=== PATIENT | female | born 1950 | race Two or more races ===

== ENCOUNTER 2019-01-18 18:26 | Inpatient (IN) | payer MEDICARE ==
[2019-01-18] MEDS ORDERED: Sodium Chloride 0.9% 1,000 ML IV STA (19:27)
--- NOTE | 2019-01-18 20:01 | ED PDOC ---
HPI: Skin/Bite Injury Time Seen by Provider: 01/18/19 19:10 Chief Complaint (Nursing): Abnormal Skin Integrity Chief Complaint (Provider): Rash History Per: Patient History/Exam Limitations: no limitations Onset/Duration Of Symptoms: Days (x3) Current Symptoms Are (Timing): Still Present Additional Complaint(s): 68 year old female with pmhx of seizure disorder, hypertension, chronic alcohol abuse, and "brain surgery" four years ago presents to the ED via EMS for eval uation of a rash to her face and bilateral upper/lower extremities. Patient states the rash on her face feels hot, and that she has been picking scabs off of her legs and arms. Otherwise, patient states this has never happened before and denies fever, chest pain, shortness of breath, and abdominal pain. She also notes a wet film on her neck which she attributes to "brain fluid." Admits to alcohol use today. PMD: Dr. Dee in [place] Past Medical History Reviewed: Historical Data, Nursing Documentation, Vital Signs Vital Signs: Last Vital Signs Temp 97.6 F 01/18/19 18:38 Pulse 125 H 01/18/19 18:38 Resp 16 01/18/19 18:38 BP 161/90 H 01/18/19 18:38 Pulse Ox 99 01/18/19 18:38 - Medical History PMH: HTN, Seizures - Surgical History Other surgeries: "brain surgery" x4 years ago - Family History Family History: States: Unknown Family Hx - Social History Current smoker - smoking cessation education provided: No Ex-Smoker (has not smoked in the last 12 months): Yes Alcohol: Other (hx of abuse, daily use) Drugs: Denies - Immunization History Hx Tetanus Toxoid Vaccination: No Hx Influenza Vaccination: No Hx Pneumococcal Vaccination: No - Home Medications Home Medications: Ambulatory Orders Medication Instructions Recorded QUEtiapine [SEROquel] 50 mg PO HS 01/18/19 RX: Levetiracetam 1,000 mg PO BID 01/18/19 RX: Metoprolol Tartrate [Lopressor] 25 mg PO BID 01/18/19 RX: Venlafaxine HCl [Venlafaxine 150 mg PO DAILY 01/18/19 HCl ER] - Allergies Allergies/Adverse Reactions: Allergies Allergy/AdvReac Type Severity Reaction Status Date / Time No Known Allergies Allergy Verified 01/18/19 18:38 Review of Systems ROS Statement: Except As Marked, All Systems Reviewed And Found Negative Constitutional: Negative for: Fever Cardiovascular: Negative for: Chest Pain Respiratory: Negative for: Shortness of Breath Gastrointestinal: Negative for: Abdominal Pain Skin: Positive for: Rash (red hot rash to face, and bilateral upper/lower extremities; wet film on neck) Physical Exam - Reviewed Nursing Documentation Reviewed: Yes Vital Signs Reviewed: Yes - Physical Exam Appears: Positive for: No Acute Distress Head Exam: Positive for: ATRAUMATIC, NORMOCEPHALIC Skin: Positive for: Rash (Face: erythematous scaling rash to entire face sparing hairline and in a semicircular collar distribution to lower neck and above with leathery quality in certain places; UE/LE: rash scattered in distribution, min imal to moderate compared to face with exposed epidermis secondary to picking of scabs; Lower abdomen right side: vesicular rash) Eye Exam: Positive for: Normal appearance Cardiovascular/Chest: Positive for: Tachycardia Respiratory: Positive for: Normal Breath Sounds. Negative for: Respiratory Distress Extremity: Positive for: Normal ROM (all extremities) Neurological/Psych: Positive for: Awake, Alert - Laboratory Results Result Diagrams: 01/18/19 20:31 01/18/19 20:31 - ECG O2 Sat by Pulse Oximetry: 99 (RA) Pulse Ox Interpretation: Normal Medical Decision Making Medical Decision Making: A/P: erythematous rash to face and extremities in a somewhat exposure distribution --unclear at this time if it is cellulitic, inflammatory, immunologic, or drug related photodermatitis --will attempt to reach PMD in [place], Dr. Dee Time: 1925 Initial Plan: --Type and screen --VBG --Alcohol serum --UDS --CMP --Lipase --CBC with differential --PTT / PT --CXR --Normal saline IV --Blood culture --Urinalysis 21:00 --Dr. Davis states that he is unaware of any "brain surgery" but the patient gets confused because of her alcoholism --Patient has hypokalemia on VBG and CMP, likely secondary to chronic alcoholism and malnutrition, will replete --Will cover with ABx for photodermatitis with possible superimposed cellulitis --Will admit to Dr. Barry's service Scribe Attestation: Documented by Nettie Flannery, acting as a scribe for Hermelindo Cruz MD. Provider Scribe Attestation: All medical record entries made by the Scribe were at my direction and personally dictated by me. I have reviewed the chart and agree that the record accurately reflects my personal performance of the history, physical exam, medical decision making, and the department course for this patient. I have also personally directed, reviewed, and agree with the discharge instructions and disposition. Disposition - Clinical Impression Clinical Impression: Photodermatitis, Cellulitis, Hypokalemia Discussed With Dr.: Isabella Conde Seman - Disposition Disposition Time: 21:27 Condition: FAIR Forms: [employer] (Czech)
[2019-01-18 20:36] LABS: VENOUS BLOOD GAS BASE EXCESS -10.6 mmol/L (0.0-2.0); VENOUS BLOOD GAS PCO2 27 mmHg (40-60); VENOUS BLOOD GAS PO2 30 mm/Hg (30-55); VENOUS BLOOD PH 7.32 (7.32-7.43)
[2019-01-18 20:38] LABS: BASO % 0.5 % (0.0-2.0); EOS # 0.2 K/uL (0.0-0.7); EOS % 2.7 % (0.0-4.0); HEMOGLOBIN 11.4 g/dL (12.0-16.0); LYMPH # 1.3 K/uL (1.0-4.3); LYMPH % 19.1 % (20.0-40.0); MEAN CELL VOLUME 91.3 fl (81.0-99.0); MEAN CORPUSCULAR HEMOGLOBIN 30.5 pg (27.0-31.0); MEAN CORPUSCULAR HGB CONC 33.4 g/dL (33.0-37.0); MEAN PLATELET VOLUME 7.4 fl (7.2-11.7); MONO # 0.8 K/uL (0.0-0.8); MONO % 12.3 % (0.0-10.0); NEUT # 4.4 K/uL (1.8-7.0); NEUT % 65.4 % (50.0-75.0); NRBC % 0.1 % (0.0-0.0); RBC 3.75 Mil/uL (3.80-5.20); RED CELL DISTRIBUTION WIDTH 16.6 % (11.5-14.5); WHITE BLOOD COUNT 6.7 K/uL (4.8-10.8)
[2019-01-18 20:45] LABS: ALBUMIN 2.6 g/dL (3.5-5.0); ALT/SGPT 26 U/L (9-52); AST/SGOT 20 U/L (14-36); BLOOD UREA NITROGEN 6 mg/dl (7-17); CALCIUM 6.8 mg/dL (8.4-10.2); GFR NON-AFRICAN AMERICAN > 60; LIPASE 23 U/L (23-300)
[2019-01-18 20:52] LABS: INR 1.3; PROTHROMBIN TIME 14.6 Seconds (9.8-13.1)
[2019-01-18] MEDS ORDERED: Potassium Chloride 20 mEq ER Tab PO ONE ×2 (21:06→21:32)
[2019-01-18] MEDS ORDERED: Clindamycin 300 MG in Sodium Chloride 0.9% 50 ML IVPB STA (21:06)
[2019-01-18] MEDS ORDERED: Multivitamin (MVI) 10 ML, Thiamine 100 MG, Folic Acid 1 MG in Dextrose 5%/0.45% NS 1,00... IV ONE (21:07)
[2019-01-18] MEDS ORDERED: Potassium CL 10 MEQ/50 ML 50 ML ONE (22:44)
[2019-01-18] MEDS: Potassium CL 10 MEQ/50 ML 50 ML IVPB SCH (23:33)
[2019-01-19] MEDS: Sodium Chloride 0.9% 250 ML IV SCH ×2 (00:40→02:39)
[2019-01-19] MEDS ORDERED: Potassium CL 10 MEQ/50 ML 50 ML ONE (01:03)
[2019-01-19] MEDS: Potassium CL 10 MEQ/50 ML 50 ML IVPB SCH (01:40)
[2019-01-19] MEDS: Sodium Chloride 0.9% 1,000 ML IV SCH ×2 (04:17→13:04)
[2019-01-19 06:21] LABS: BASO % 0.5 % (0.0-2.0); EOS # 0.3 K/uL (0.0-0.7); EOS % 3.8 % (0.0-4.0); HEMOGLOBIN 13.3 g/dL (12.0-16.0); LYMPH # 1.2 K/uL (1.0-4.3); LYMPH % 17.9 % (20.0-40.0); MEAN CELL VOLUME 91.2 fl (81.0-99.0); MEAN CORPUSCULAR HEMOGLOBIN 30.1 pg (27.0-31.0); MEAN PLATELET VOLUME 7.5 fl (7.2-11.7); MONO # 0.8 K/uL (0.0-0.8); MONO % 12.2 % (0.0-10.0); NEUT # 4.5 K/uL (1.8-7.0); NEUT % 65.6 % (50.0-75.0); NRBC % 0.1 % (0.0-0.0); RBC 4.42 Mil/uL (3.80-5.20); RED CELL DISTRIBUTION WIDTH 16.8 % (11.5-14.5); WHITE BLOOD COUNT 6.8 K/uL (4.8-10.8)
[2019-01-19 06:45] LABS: ALB/GLOB RATIO 1.1 (1.0-2.1); ALBUMIN 3.2 g/dL (3.5-5.0); ALT/SGPT 30 U/L (9-52); AST/SGOT 23 U/L (14-36); BLOOD UREA NITROGEN 7 mg/dl (7-17); CALCIUM 8.7 mg/dL (8.4-10.2); GFR NON-AFRICAN AMERICAN > 60
--- NOTE | 2019-01-19 07:14 | CARD ---
APPROVED REPORT Date of service: 01/18/2019 EKG Measurement Heart [id number] <Conclusion> Normal sinus rhythm Minimal voltage criteria for LVH, may be normal variant Borderline ECG
[2019-01-19] MEDS ORDERED: LEVETIRACETAM 1000 MG PO SCH (09:00)
--- NOTE | 2019-01-19 09:28 | RAD ---
Date of service: 01/18/2019 HISTORY: HTN COMPARISON: No prior. TECHNIQUE: 1 view obtained. FINDINGS: LUNGS: No active pulmonary disease. PLEURA: No significant pleural effusion identified, no pneumothorax apparent. CARDIOVASCULAR: No aortic atherosclerotic calcification present. Normal cardiac size. No pulmonary vascular congestion. OSSEOUS STRUCTURES: No significant abnormalities. VISUALIZED UPPER ABDOMEN: Normal. OTHER FINDINGS: None. IMPRESSION: No acute cardiopulmonary disease appreciated.
[2019-01-19] MEDS: Lactobacillus Acidophilus 500 MU Cap PO SCH ×2 (10:37→17:51)
[2019-01-19] MEDS: Venlafaxine 150 mg ER Cap PO SCH (10:38)
[2019-01-19] MEDS: Enoxaparin 40 mg Syringe SC SCH (10:40)
[2019-01-19] MEDS: Multivitamin With Minerals Tab PO SCH (10:40)
[2019-01-19] MEDS: Clindamycin 600mg/50ml NS 600 MG/50 ML BAG IVPB SCH ×2 (10:56→17:51)
[2019-01-20] MEDS: Clindamycin 600mg/50ml NS 600 MG/50 ML BAG IVPB SCH ×4 (01:25→17:06)
[2019-01-20] MEDS: Sodium Chloride 0.9% 1,000 ML IV SCH (01:33)
[2019-01-20] MEDS: Venlafaxine 150 mg ER Cap PO SCH ×2 (09:17→09:27)
[2019-01-20] MEDS: Multivitamin With Minerals Tab PO SCH ×2 (09:17→09:26)
[2019-01-20] MEDS: Enoxaparin 40 mg Syringe SC SCH (09:18)
[2019-01-20] MEDS: Lactobacillus Acidophilus 500 MU Cap PO SCH ×3 (09:22→17:06)
--- NOTE | 2019-01-20 14:07 | CP.PCM.CON ---
History of Present Illness - History of Present Illness History of Present Illness: Infectious Disease Consultation Note- Asked to see this patient at the request of for extensive skin rash. HPI- Vidal is a 68 year old female with PMH of HTN, seizure disorder, ETYOH abuse who came to ED c/o rash that ahs developed on her body. She explaisn first it apeared on her left ankle and then moved up to her arms b/l specially on the elbow fold an now to her neck adn chest region and her face. Patient states the rash on her face feels hot, and that she has been picking scabs off of her legs and arms. she states the rash is itchy too. she denies any fever or chills,denies any nausea or vomiting, denies any BAKER, denies any cough or sob, denies any marsha pain, denies any abvd. pain, denie any dysurea, denies any diarrhea. states had something similar to this 4 years ago when she was using soft water. she denies any new detergent or any new food. She does states that she was given the generic keppra med reently adn later this developed. she denies any sick contacts. denies any animal exposure. Review of Systems - Review of Systems Review of Systems: ROS- as stated in HPI Past Patient History - Past Medical History & Family History Past Medical History?: Yes - Past Social History Smoking Status: Former Smoker Alcohol: > 2 Drinks/Day Home Situation {Lives}: With Family - CARDIAC Hx Cardiac Disorders: Yes Hx Hypertension: Yes - PULMONARY Hx Respiratory Disorders: No - NEUROLOGICAL Hx Seizures: Yes - HEENT Hx HEENT Problems: No - RENAL Hx Chronic Kidney Disease: No - ENDOCRINE/METABOLIC Hx Endocrine Disorders: No - HEMATOLOGICAL/ONCOLOGICAL Hx Blood Disorders: No - INTEGUMENTARY Hx Dermatological Problems: No - MUSCULOSKELETAL/RHEUMATOLOGICAL Hx Musculoskeletal Disorders: No Hx Falls: No - GASTROINTESTINAL Hx Gastrointestinal Disorders: No - GENITOURINARY/GYNECOLOGICAL Hx Genitourinary Disorders: No - PSYCHIATRIC Hx Psychophysiologic Disorder: No Hx Substance Use: No - SURGICAL HISTORY Hx Surgeries: Yes Other/Comment: Right arm surgery - ANESTHESIA Hx Anesthesia: Yes Hx Anesthesia Reactions: No Meds Allergies/Adverse Reactions: Allergies Allergy/AdvReac Type Severity Reaction Status Date / Time No Known Allergies Allergy Verified 01/18/19 18:38 - Medications Medications: Current Medications Enoxaparin Sodium (Lovenox) 40 mg SC DAILY [facility]; Protocol Last Admin: 01/20/19 09:18 Dose: Not Given Folic Acid (Folic Acid) 1 mg PO DAILY [facility] Last Admin: 01/20/19 09:26 Dose: Not Given Clindamycin Phosphate (Cleocin 600mg/50ml Ns) 600 mg in 50 mls @ 50 mls/hr IVPB Q8 [facility]; Protocol Last Admin: 01/20/19 09:27 Dose: Not Given Lactobacillus Acidophilus (Bacid Acidophilus) 1 cap PO BID [facility]; Protocol Last Admin: 01/20/19 09:24 Dose: Not Given Levetiracetam (Keppra) 1,000 mg PO BID [facility] Last Admin: 01/20/19 09:26 Dose: Not Given Metoprolol Tartrate (Lopressor) 25 mg PO BID [facility] Last Admin: 01/20/19 09:26 Dose: Not Given Multivitamins/Minerals (Therapeutic-M Tab) 1 tab PO DAILY [facility] Last Admin: 01/20/19 09:26 Dose: Not Given Quetiapine Fumarate (Seroquel) 50 mg PO HS [facility] Last Admin: 01/20/19 01:32 Dose: 50 mg Thiamine HCl (Vitamin B1 Tab) 100 mg PO DAILY [facility] Last Admin: 01/20/19 09:26 Dose: Not Given Venlafaxine HCl (Effexor Xr) 150 mg PO DAILY [facility] Last Admin: 01/20/19 09:27 Dose: Not Given Physical Exam - Constitutional Appears: No Acute Distress - Head Exam Head Exam: ATRAUMATIC - Eye Exam Eye Exam: EOMI, PERRL - ENT Exam ENT Exam: Normal Oropharynx - Neck Exam Neck exam: Positive for: Full Rom - Respiratory Exam Respiratory Exam: Clear to Auscultation Bilateral, NORMAL BREATHING PATTERN - Cardiovascular Exam Cardiovascular Exam: RRR, +S1, +S2 - GI/Abdominal Exam GI & Abdominal Exam: Normal Bowel Sounds, Soft Additional comments: NT, ND - Extremities Exam Additional comments: No edema b/l LE - Neurological Exam Neurological exam: Alert, Oriented x3 - Skin Additional comments: dry squamated skin on the left ankle region, no erythema, no discharge on b/l inner arms and elbow fold has areas of erythjema with desquamated skin and dry scaly skin no discharge no warmth on the anterior chest /neck region raw denuded skin with erythema, sloughed off epidermis and on her enire face extrmely dry sqamated skin no lesions no discharge skin coming off as in sunburn skin dry skin desquamation Results - Vital Signs Recent Vital Signs: Last Vital Signs Temp 97.9 F 01/20/19 08:16 Pulse 81 01/20/19 08:16 Resp 19 01/20/19 08:16 BP 117/76 01/20/19 08:16 Pulse Ox 96 01/20/19 08:16 - Labs Result Diagrams: 01/19/19 05:55 01/19/19 05:55 Assessment & Plan (1) Photodermatitis Status: Acute (2) Skin desquamation Status: Acute - Assessment and Plan (Free Text) Assessment: A/P- 68 year old female with pmh of seizure disorder, ETOH abuse, HTN, psych history admitted with extensive skin rash/desquamation. patient's skin desquamation seems like an allergic response to something and does not look cellulitic. afebrile normal wbc count hard to discern what her skin is reacting to could be secondary to keppra possibly. she also takes OTC medicine for hot flashes , not sure if that can be the e tiology. will def need dermatologuy consultation/evaluation.may need biopsy of her skin lesion. advise no antibiotic at this time as this seems to be an allergic skin desquamation. may need IVF . would advise to look up all pt's meds and whichever is reported as having skin rash as a side effects to be held. All above d/w patient and her daughter who is at her bedside and they verbalize full understanding of all above. Thank you for allowing met o take part in the care of this patient.
--- NOTE | 2019-01-20 16:05 | CP.PCM.HP ---
Past Patient History - Past Medical History & Family History Past Medical History?: Yes - Past Social History Smoking Status: Former Smoker Alcohol: > 2 Drinks/Day Home Situation {Lives}: With Family - CARDIAC Hx Cardiac Disorders: Yes Hx Hypertension: Yes - PULMONARY Hx Respiratory Disorders: No - NEUROLOGICAL Hx Seizures: Yes - HEENT Hx HEENT Problems: No - RENAL Hx Chronic Kidney Disease: No - ENDOCRINE/METABOLIC Hx Endocrine Disorders: No - HEMATOLOGICAL/ONCOLOGICAL Hx Blood Disorders: No - INTEGUMENTARY Hx Dermatological Problems: No - MUSCULOSKELETAL/RHEUMATOLOGICAL Hx Musculoskeletal Disorders: No Hx Falls: No - GASTROINTESTINAL Hx Gastrointestinal Disorders: No - GENITOURINARY/GYNECOLOGICAL Hx Genitourinary Disorders: No - PSYCHIATRIC Hx Psychophysiologic Disorder: No Hx Substance Use: No - SURGICAL HISTORY Hx Surgeries: Yes Other/Comment: Right arm surgery - ANESTHESIA Hx Anesthesia: Yes Hx Anesthesia Reactions: No Meds Allergies/Adverse Reactions: Allergies Allergy/AdvReac Type Severity Reaction Status Date / Time No Known Allergies Allergy Verified 01/18/19 18:38 Results - Vital Signs Recent Vital Signs: Last Vital Signs Temp 97.9 F 01/20/19 08:16 Pulse 81 01/20/19 08:16 Resp 19 01/20/19 08:16 BP 117/76 01/20/19 08:16 Pulse Ox 96 01/20/19 08:16 - Labs Result Diagrams: 01/19/19 05:55 01/19/19 05:55 Assessment & Plan (1) Cellulitis Status: Acute (2) Hypokalemia Status: Acute (3) Photodermatitis Status: Acute (4) Skin desquamation Status: Acute
[2019-01-20 18:23] LABS: BASO % 0.7 % (0.0-2.0); EOS # 0.3 K/uL (0.0-0.7); EOS % 5.3 % (0.0-4.0); LYMPH # 1.8 K/uL (1.0-4.3); LYMPH % 26.7 % (20.0-40.0); MEAN CELL VOLUME 91.4 fl (81.0-99.0); MEAN CORPUSCULAR HEMOGLOBIN 30.2 pg (27.0-31.0); MEAN PLATELET VOLUME 7.5 fl (7.2-11.7); MONO # 0.7 K/uL (0.0-0.8); NEUT # 3.7 K/uL (1.8-7.0); NEUT % 56.3 % (50.0-75.0); NRBC % 0.1 % (0.0-0.0); RBC 4.63 Mil/uL (3.80-5.20); WHITE BLOOD COUNT 6.6 K/uL (4.8-10.8)
[2019-01-20 19:01] LABS: SQUAMOUS EPITHIAL 1 /hpf (0-5); URINE BILIRUBIN NEGATIVE (NEGATIVE); URINE BLOOD NEGATIVE (NEGATIVE); URINE CLARITY CLEAR (Clear); URINE COLOR STRAW (YELLOW); URINE GLUCOSE (UA) NEG (NEGATIVE); URINE LEUKOCYTE ESTERASE NEG Leu/uL (Negative); URINE PROTEIN NEGATIVE (NEGATIVE); URINE UROBILINOGEN 0.2-1.0 mg/dL (0.2-1.0)
[2019-01-20 19:18] LABS: BARBITURATES, UR NEGATIVE (NEGATIVE); BENZODIAZEPINES, UR NEGATIVE (NEGATIVE); OPIATES, UR NEGATIVE (NEGATIVE); PHENCYCLIDINE, UR NEGATIVE (NEGATIVE)
[2019-01-20] MEDS ORDERED: Hydrocortisone- 50 MG in Sodium Chloride 0.9% 100 ML IV SCH (21:00)
[2019-01-20] MEDS: Calamine/Zinc Oxide LOTION TOP SCH (21:39)
[2019-01-21] MEDS: Clindamycin 600mg/50ml NS 600 MG/50 ML BAG IVPB SCH ×3 (01:21→16:51)
[2019-01-21] MEDS: Calamine/Zinc Oxide LOTION TOP SCH ×4 (03:00→20:35)
[2019-01-21] MEDS: Lactobacillus Acidophilus 500 MU Cap PO SCH ×2 (08:53→16:48)
[2019-01-21 08:54] LABS: BASO % 0.6 % (0.0-2.0); EOS # 0.1 K/uL (0.0-0.7); EOS % 2.1 % (0.0-4.0); HEMOGLOBIN 13.8 g/dL (12.0-16.0); LYMPH # 1.7 K/uL (1.0-4.3); LYMPH % 27.5 % (20.0-40.0); MEAN CELL VOLUME 91.1 fl (81.0-99.0); MEAN CORPUSCULAR HEMOGLOBIN 30.2 pg (27.0-31.0); MEAN CORPUSCULAR HGB CONC 33.2 g/dL (33.0-37.0); MEAN PLATELET VOLUME 7.1 fl (7.2-11.7); MONO # 0.8 K/uL (0.0-0.8); MONO % 12.7 % (0.0-10.0); NEUT # 3.5 K/uL (1.8-7.0); NEUT % 57.1 % (50.0-75.0); NRBC % 0.1 % (0.0-0.0); RBC 4.57 Mil/uL (3.80-5.20); RED CELL DISTRIBUTION WIDTH 17.3 % (11.5-14.5); WHITE BLOOD COUNT 6.1 K/uL (4.8-10.8)
[2019-01-21] MEDS: Venlafaxine 150 mg ER Cap PO SCH (08:56)
[2019-01-21] MEDS: Enoxaparin 40 mg Syringe SC SCH (08:59)
[2019-01-21] MEDS: Multivitamin With Minerals Tab PO SCH (08:59)
[2019-01-21 09:40] LABS: ALB/GLOB RATIO 1.2 (1.0-2.1); ALT/SGPT 18 U/L (9-52); AST/SGOT 26 U/L (14-36); BLOOD UREA NITROGEN 8 mg/dl (7-17); CALCIUM 10.1 mg/dL (8.4-10.2); GFR NON-AFRICAN AMERICAN > 60
--- NOTE | 2019-01-21 10:59 | CP.PCM.PN ---
Subjective - Date & Time of Evaluation Date of Evaluation: 01/20/19 Objective - Vital Signs/Intake and Output Vital Signs (last 24 hours): Temp Pulse Resp BP Pulse Ox 97.5 F L 93 H 20 131/82 96 01/21/19 08:04 01/21/19 08:58 01/21/19 08:04 01/21/19 08:58 01/21/19 08:04 - Medications Medications: Current Medications Calamine (Calamine Lotion) 1 applic TOP Q6H [facility] Last Admin: 01/21/19 08:54 Dose: 1 applic Enoxaparin Sodium (Lovenox) 40 mg SC DAILY [facility]; Protocol Last Admin: 01/21/19 08:59 Dose: Not Given Folic Acid (Folic Acid) 1 mg PO DAILY [facility] Last Admin: 01/21/19 08:57 Dose: 1 mg Hydrocortisone Sodium Succinate (Solu-Cortef) 50 mg IV Q8H [facility] Last Admin: 01/20/19 21:37 Dose: 50 mg Clindamycin Phosphate (Cleocin 600mg/50ml Ns) 600 mg in 50 mls @ 50 mls/hr IVPB Q8 [facility]; Protocol Last Admin: 01/21/19 08:55 Dose: 50 mls/hr Lactobacillus Acidophilus (Bacid Acidophilus) 1 cap PO BID [facility]; Protocol Last Admin: 01/21/19 08:53 Dose: 1 cap Levetiracetam (Keppra) 1,000 mg PO BID [facility] Last Admin: 01/21/19 08:57 Dose: 1,000 mg Metoprolol Tartrate (Lopressor) 25 mg PO BID [facility] Last Admin: 01/21/19 08:58 Dose: 25 mg Multivitamins/Minerals (Therapeutic-M Tab) 1 tab PO DAILY [facility] Last Admin: 01/21/19 08:59 Dose: 1 tab Quetiapine Fumarate (Seroquel) 50 mg PO HS [facility] Last Admin: 01/20/19 21:36 Dose: 50 mg Thiamine HCl (Vitamin B1 Tab) 100 mg PO DAILY [facility] Last Admin: 01/21/19 08:59 Dose: 100 mg Venlafaxine HCl (Effexor Xr) 150 mg PO DAILY [facility] Last Admin: 01/21/19 08:56 Dose: 150 mg - Labs Labs: 01/21/19 08:15 01/21/19 08:15 PT 14.6 Seconds (9.8-13.1) H 01/18/19 20:31 INR 1.3 01/18/19 20:31 APTT 28.0 Seconds (25.6-37.1) 01/18/19 20:31 Assessment and Plan (1) Cellulitis Status: Acute (2) Hypokalemia Status: Acute (3) Photodermatitis Status: Acute (4) Skin desquamation Status: Acute
[2019-01-22] MEDS: Clindamycin 600mg/50ml NS 600 MG/50 ML BAG IVPB SCH ×3 (00:07→16:50)
[2019-01-22] MEDS: Calamine/Zinc Oxide LOTION TOP SCH ×3 (02:01→16:46)
[2019-01-22 09:14] VITALS: RESP 20
[2019-01-22] MEDS: Venlafaxine 150 mg ER Cap PO SCH (09:38)
[2019-01-22] MEDS: Multivitamin With Minerals Tab PO SCH (09:39)
[2019-01-22] MEDS: Enoxaparin 40 mg Syringe SC SCH (09:41)
[2019-01-22] MEDS: Lactobacillus Acidophilus 500 MU Cap PO SCH ×2 (09:48→16:49)
--- NOTE | 2019-01-22 09:56 | CP.PCM.PN ---
Subjective - Date & Time of Evaluation Date of Evaluation: 01/22/19 Time of Evaluation: 09:56 - Subjective Subjective: Id Note- Pt. seen and examined today. pt's facial redness and skin desquamation has improved. her neck is also slightly hola erythematous and less desquamation. she denies any fever or any itching . Objective - Vital Signs/Intake and Output Vital Signs (last 24 hours): Temp Pulse Resp BP Pulse Ox 97.6 F 67 20 163/96 H 97 01/22/19 09:00 01/22/19 09:39 01/22/19 09:00 01/22/19 09:39 01/22/19 09:00 - Medications Medications: Current Medications Calamine (Calamine Lotion) 1 applic TOP Q6H [facility] Last Admin: 01/22/19 09:37 Dose: 1 applic Folic Acid (Folic Acid) 1 mg PO DAILY [facility] Last Admin: 01/22/19 09:38 Dose: 1 mg Hydrocortisone Sodium Succinate (Solu-Cortef) 50 mg IV Q8H [facility] Last Admin: 01/22/19 04:30 Dose: 50 mg Clindamycin Phosphate (Cleocin 600mg/50ml Ns) 600 mg in 50 mls @ 50 mls/hr IVPB Q8 [facility]; Protocol Last Admin: 01/22/19 09:37 Dose: 50 mls/hr Lactobacillus Acidophilus (Bacid Acidophilus) 1 cap PO BID [facility]; Protocol Last Admin: 01/22/19 09:48 Dose: 1 cap Levetiracetam (Keppra) 1,000 mg PO BID [facility] Last Admin: 01/22/19 09:38 Dose: 1,000 mg Metoprolol Tartrate (Lopressor) 25 mg PO BID [facility] Last Admin: 01/22/19 09:39 Dose: 25 mg Multivitamins/Minerals (Therapeutic-M Tab) 1 tab PO DAILY [facility] Last Admin: 01/22/19 09:39 Dose: 1 tab Quetiapine Fumarate (Seroquel) 50 mg PO HS [facility] Last Admin: 01/21/19 22:15 Dose: 50 mg Thiamine HCl (Vitamin B1 Tab) 100 mg PO DAILY [facility] Last Admin: 01/22/19 09:39 Dose: 100 mg Venlafaxine HCl (Effexor Xr) 150 mg PO DAILY [facility] Last Admin: 01/22/19 09:38 Dose: 150 mg - Labs Labs: - Additional Findings Additional findings: - Constitutional Appears: No Acute Distress - Head Exam Head Exam: ATRAUMATIC - Eye Exam Eye Exam: EOMI, PERRL - ENT Exam ENT Exam: Normal Oropharynx - Neck Exam Neck exam: Positive for: Full Rom - Respiratory Exam Respiratory Exam: Clear to Auscultation Bilateral, NORMAL BREATHING PATTERN - Cardiovascular Exam Cardiovascular Exam: RRR, +S1, +S2 - GI/Abdominal Exam GI & Abdominal Exam: Normal Bowel Sounds, Soft Additional comments: NT, ND - Extremities Exam Additional comments: No edema b/l LE - Neurological Exam Neurological exam: Alert, Oriented x3 - Skin Additional comments: dry desquamated skin on the left ankle region, no erythema, no discharge on b/l inner arms and elbow fold has areas of desquamated skin and dry scaly skin no discharge no warmth on the anterior chest /neck region raw denuded skin with erythema, sloughed off epidermis facial and neck erythema and desquamation and scaling is much less no lesions no discharge Laboratory Results - last 72 hr 01/20/19 01/20/19 01/20/19 16:42 18:51 18:51 WBC 6.6 RBC 4.63 Hgb 14.0 Hct 42.4 MCV 91.4 MCH 30.2 MCHC 33.0 RDW 17.0 H Plt Count 283 MPV 7.5 Neut % (Auto) 56.3 Lymph % (Auto) 26.7 [place] % (Auto) 11.0 H Eos % (Auto) 5.3 H Baso % (Auto) 0.7 Neut # (Auto) 3.7 Lymph # (Auto) 1.8 [place] # (Auto) 0.7 Eos # (Auto) 0.3 Baso # (Auto) 0.0 Sodium Potassium Chloride Carbon Dioxide Anion Gap BUN Creatinine Est GFR ( Amer) Est GFR (Non-Af Amer) POC Glucose (mg/dL) Random Glucose Calcium Magnesium Total Bilirubin AST ALT Alkaline Phosphatase Total Protein Albumin Globulin Albumin/Globulin Ratio Urine Color Straw Urine Clarity Clear Urine pH 6.0 Ur Specific [place] < 1.005 Urine Protein Negative Urine Glucose (UA) Neg Urine Ketones Negative Urine Blood Negative Urine Nitrate Negative Urine Bilirubin Negative Urine Urobilinogen 0.2-1.0 Ur Leukocyte Esterase Neg Urine RBC (Auto) 2 Urine Microscopic WBC 1 Ur Squamous Epith Cells 1 Urine Opiates Screen Negative Urine Methadone Screen Negative Ur Barbiturates Screen Negative Ur Phencyclidine Scrn Negative Ur Amphetamines Screen Negative U Benzodiazepines Scrn Negative U Oth Cocaine Metabols Negative U Cannabinoids Screen Negative 01/21/19 01/21/19 01/21/19 05:45 08:15 08:15 WBC 6.1 RBC 4.57 Hgb 13.8 Hct 41.7 MCV 91.1 MCH 30.2 MCHC 33.2 RDW 17.3 H Plt Count 318 MPV 7.1 L Neut % (Auto) 57.1 Lymph % (Auto) 27.5 [place] % (Auto) 12.7 H Eos % (Auto) 2.1 Baso % (Auto) 0.6 Neut # (Auto) 3.5 Lymph # (Auto) 1.7 [place] # (Auto) 0.8 Eos # (Auto) 0.1 Baso # (Auto) 0.0 Sodium 141 Potassium 4.5 Chloride 106 Carbon Dioxide 25 Anion Gap 15 BUN 8 Creatinine 0.7 Est GFR ( Amer) > 60 Est GFR (Non-Af Amer) > 60 POC Glucose (mg/dL) 125 H Random Glucose 104 Calcium 10.1 Magnesium 2.1 Total Bilirubin 0.5 AST 26 ALT 18 Alkaline Phosphatase 100 Total Protein 7.5 Albumin 4.0 Globulin 3.5 Albumin/Globulin Ratio 1.2 Urine Color Urine Clarity Urine pH Ur Specific [place] Urine Protein Urine Glucose (UA) Urine Ketones Urine Blood Urine Nitrate Urine Bilirubin Urine Urobilinogen Ur Leukocyte Esterase Urine RBC (Auto) Urine Microscopic WBC Ur Squamous Epith Cells Urine Opiates Screen Urine Methadone Screen Ur Barbiturates Screen Ur Phencyclidine Scrn Ur Amphetamines Screen U Benzodiazepines Scrn U Oth Cocaine Metabols U Cannabinoids Screen 01/21/19 01/21/19 01/21/19 10:55 15:30 21:23 WBC RBC Hgb Hct MCV MCH MCHC RDW Plt Count MPV Neut % (Auto) Lymph % (Auto) [place] % (Auto) Eos % (Auto) Baso % (Auto) Neut # (Auto) Lymph # (Auto) [place] # (Auto) Eos # (Auto) Baso # (Auto) Sodium Potassium Chloride Carbon Dioxide Anion Gap BUN Creatinine Est GFR ( Amer) Est GFR (Non-Af Amer) POC Glucose (mg/dL) 120 H 116 H 126 H Random Glucose Calcium Magnesium Total Bilirubin AST ALT Alkaline Phosphatase Total Protein Albumin Globulin Albumin/Globulin Ratio Urine Color Urine Clarity Urine pH Ur Specific [place] Urine Protein Urine Glucose (UA) Urine Ketones Urine Blood Urine Nitrate Urine Bilirubin Urine Urobilinogen Ur Leukocyte Esterase Urine RBC (Auto) Urine Microscopic WBC Ur Squamous Epith Cells Urine Opiates Screen Urine Methadone Screen Ur Barbiturates Screen Ur Phencyclidine Scrn Ur Amphetamines Screen U Benzodiazepines Scrn U Oth Cocaine Metabols U Cannabinoids Screen Microbiology 01/18/19 20:25 Blood-Venous Blood Culture - Preliminary NO GROWTH AFTER 3 DAYS 01/18/19 20:10 Blood-Venous Blood Culture - Preliminary NO GROWTH AFTER 3 DAYS 01/20/19 17:05 Blood-Venous Blood Culture - Preliminary NO GROWTH AFTER 24 HOURS 01/20/19 16:55 Blood-Venous Blood Culture - Preliminary NO GROWTH AFTER 24 HOURS Assessment and Plan (1) Photodermatitis Status: Acute (2) Skin desquamation Status: Acute - Assessment and Plan (Free Text) Assessment: A/P- 68 year old female with pmh of seizure disorder, ETOH abuse, HTN, psych history admitted with extensive skin rash/desquamation. patient's skin desquamation seems like an allergic response to something and does not look cellulitic. it is better today. remains afebrile normal wbc count blood cx- neg x 4 Plan- advise to f/u with radiology technician as outpatient. advised to avoid direct sunexposure until the skin lesions have resolved. no need for any antibiotics. may benefit from short course prednisone few days. advised to avoid any OTC or herbal remedies until she has seen radiology technician. Patient verbalizes full understanding of all above. D/W Adina Casanova.
[2019-01-22 16:40] VITALS: BP 188/105; PULSE 77; TEMP 98; O2SAT 96
--- NOTE | 2019-01-23 23:47 | CP.PCM.PN ---
Subjective - Date & Time of Evaluation Date of Evaluation: 01/21/19 Objective - Vital Signs/Intake and Output Vital Signs (last 24 hours): Temp Pulse Resp BP Pulse Ox 98 F 77 20 188/105 H 96 01/22/19 17:00 01/22/19 17:00 01/22/19 17:00 01/22/19 17:00 01/22/19 17:00 - Labs Labs: 01/21/19 08:15 01/21/19 08:15 PT 14.6 Seconds (9.8-13.1) H 01/18/19 20:31 INR 1.3 01/18/19 20:31 APTT 28.0 Seconds (25.6-37.1) 01/18/19 20:31 Assessment and Plan (1) Cellulitis Status: Acute (2) Hypokalemia Status: Acute (3) Photodermatitis Status: Acute (4) Skin desquamation Status: Acute
--- NOTE | 2019-01-23 23:48 | CP.PCM.DIS ---
Provider - Provider Date of Admission: 01/19/19 12:14 Attending physician: Isabella Barry MD Consults: 01/20/19 13:30 Infectious Disease Consult Routine Comment: Consulting Provider: Faith Beltran Consulting Physician: Faith Beltran Reason for Consult: multiple lesions, cellulitis Time Spent in preparation of Discharge (in minutes): 30 Diagnosis - Discharge Diagnosis (1) Cellulitis Status: Acute (2) Hypokalemia Status: Acute (3) Photodermatitis Status: Acute (4) Skin desquamation Status: Acute Hospital Course - Lab Results Lab Results: Micro Results 01/18/19 20:25 Blood-Venous Blood Culture - Final NO GROWTH AFTER 5 DAYS 01/18/19 20:25 Blood-Venous Gram Stain - Final TEST NOT PERFORMED 01/18/19 20:10 Blood-Venous Blood Culture - Final NO GROWTH AFTER 5 DAYS 01/18/19 20:10 Blood-Venous Gram Stain - Final TEST NOT PERFORMED 01/20/19 17:05 Blood-Venous Blood Culture - Preliminary NO GROWTH AFTER 3 DAYS 01/20/19 16:55 Blood-Venous Blood Culture - Preliminary NO GROWTH AFTER 3 DAYS Most Recent Lab Values WBC 6.1 K/uL (4.8-10.8) 01/21/19 08:15 RBC 4.57 Mil/uL (3.80-5.20) 01/21/19 08:15 Hgb 13.8 g/dL (12.0-16.0) 01/21/19 08:15 Hct 41.7 % (34.0-47.0) 01/21/19 08:15 MCV 91.1 fl (81.0-99.0) 01/21/19 08:15 MCH 30.2 pg (27.0-31.0) 01/21/19 08:15 MCHC 33.2 g/dL (33.0-37.0) 01/21/19 08:15 RDW 17.3 % (11.5-14.5) H 01/21/19 08:15 Plt Count 318 K/uL (130-400) 01/21/19 08:15 MPV 7.1 fl (7.2-11.7) L 01/21/19 08:15 Neut % (Auto) 57.1 % (50.0-75.0) 01/21/19 08:15 Lymph % (Auto) 27.5 % (20.0-40.0) 01/21/19 08:15 [place] % (Auto) 12.7 % (0.0-10.0) H 01/21/19 08:15 Eos % (Auto) 2.1 % (0.0-4.0) 01/21/19 08:15 Baso % (Auto) 0.6 % (0.0-2.0) 01/21/19 08:15 Neut # (Auto) 3.5 K/uL (1.8-7.0) 01/21/19 08:15 Lymph # (Auto) 1.7 K/uL (1.0-4.3) 01/21/19 08:15 [place] # (Auto) 0.8 K/uL (0.0-0.8) 01/21/19 08:15 Eos # (Auto) 0.1 K/uL (0.0-0.7) 01/21/19 08:15 Baso # (Auto) 0.0 K/uL (0.0-0.2) 01/21/19 08:15 PT 14.6 Seconds (9.8-13.1) H 01/18/19 20:31 INR 1.3 01/18/19 20:31 APTT 28.0 Seconds (25.6-37.1) 01/18/19 20:31 pO2 30 mm/Hg (30-55) 01/18/19 20:31 VBG pH 7.32 (7.32-7.43) 01/18/19 20:31 VBG pCO2 27 mmHg (40-60) L 01/18/19 20:31 VBG HCO3 15.4 mmol/L 01/18/19 20:31 VBG Total CO2 14.7 mmol/L (22-28) L 01/18/19 20:31 VBG O2 Sat (Calc) 56.6 % (40-65) 01/18/19 20:31 VBG Base Excess -10.6 mmol/L (0.0-2.0) L 01/18/19 20:31 VBG Potassium 1.7 mmol/L (3.6-5.2) L* 01/18/19 20:31 Sodium 146.0 mmol/L (132-148) 01/18/19 20:31 Chloride 122.0 mmol/L (98-107) H 01/18/19 20:31 Glucose 58 mg/dL (65-105) L 01/18/19 20:31 Lactate 1.3 mmol/L (0.7-2.1) 01/18/19 20:31 FiO2 21.0 % 01/18/19 20:31 Sodium 141 mmol/l (132-148) 01/21/19 08:15 Potassium 4.5 MMOL/L (3.6-5.0) 01/21/19 08:15 Chloride 106 mmol/L (98-107) 01/21/19 08:15 Carbon Dioxide 25 mmol/L (22-30) 01/21/19 08:15 Anion Gap 15 (10-20) 01/21/19 08:15 BUN 8 mg/dl (7-17) 01/21/19 08:15 Creatinine 0.7 mg/dl (0.7-1.2) 01/21/19 08:15 Est GFR ( Amer) > 60 01/21/19 08:15 Est GFR (Non-Af Amer) > 60 01/21/19 08:15 POC Glucose (mg/dL) 126 mg/dL (65-110) H 01/21/19 21:23 Random Glucose 104 mg/dL (65-105) 01/21/19 08:15 Calcium 10.1 mg/dL (8.4-10.2) 01/21/19 08:15 Phosphorus 1.8 mg/dl (2.5-4.5) L 01/18/19 21:20 Magnesium 2.1 MG/DL (1.6-2.3) 01/21/19 08:15 Total Bilirubin 0.5 mg/dl (0.2-1.3) 01/21/19 08:15 AST 26 U/L (14-36) 01/21/19 08:15 ALT 18 U/L (9-52) 01/21/19 08:15 Alkaline Phosphatase 100 U/L (38-126) 01/21/19 08:15 Total Protein 7.5 G/DL (6.3-8.2) 01/21/19 08:15 Albumin 4.0 g/dL (3.5-5.0) 01/21/19 08:15 Globulin 3.5 gm/dL (2.2-3.9) 01/21/19 08:15 Albumin/Globulin Ratio 1.2 (1.0-2.1) 01/21/19 08:15 Lipase 23 U/L (23-300) 01/18/19 20:31 Venous Blood Potassium 1.7 mmol/L (3.6-5.2) L* 01/18/19 20:31 Urine Color Straw (YELLOW) 01/20/19 18:51 Urine Clarity Clear (Clear) 01/20/19 18:51 Urine pH 6.0 (5.0-8.0) 01/20/19 18:51 Ur Specific [place] < 1.005 (1.003-1.030) 01/20/19 18:51 Urine Protein Negative mg/dL (NEGATIVE) 01/20/19 18:51 Urine Glucose (UA) Neg mg/dL (NEGATIVE) 01/20/19 18:51 Urine Ketones Negative mg/dL (NEGATIVE) 01/20/19 18:51 Urine Blood Negative (NEGATIVE) 01/20/19 18:51 Urine Nitrate Negative (NEGATIVE) 01/20/19 18:51 Urine Bilirubin Negative (NEGATIVE) 01/20/19 18:51 Urine Urobilinogen 0.2-1.0 mg/dL (0.2-1.0) 01/20/19 18:51 Ur Leukocyte Esterase Neg [place]/uL (Negative) 01/20/19 18:51 Urine RBC (Auto) 2 /hpf (0-3) 01/20/19 18:51 Urine Microscopic WBC 1 /hpf (0-5) 01/20/19 18:51 Ur Squamous Epith Cells 1 /hpf (0-5) 01/20/19 18:51 Urine Opiates Screen Negative (NEGATIVE) 01/20/19 18:51 Urine Methadone Screen Negative (NEGATIVE) 01/20/19 18:51 Ur Barbiturates Screen Negative (NEGATIVE) 01/20/19 18:51 Ur Phencyclidine Scrn Negative (NEGATIVE) 01/20/19 18:51 Ur Amphetamines Screen Negative (NEGATIVE) 01/20/19 18:51 U Benzodiazepines Scrn Negative (NEGATIVE) 01/20/19 18:51 U Oth Cocaine Metabols Negative (NEGATIVE) 01/20/19 18:51 U Cannabinoids Screen Negative (NEGATIVE) 01/20/19 18:51 Alcohol, Quantitative < 10 mg/dl (0-10) 01/18/19 20:31 Blood Type B POSITIVE 01/18/19 20:25 Blood Type Confirm B POSITIVE 01/19/19 05:55 Antibody Screen Negative 01/18/19 20:25 BBK History Checked No verified bt 01/18/19 20:25 Discharge Exam - Head Exam Head Exam: ATRAUMATIC Discharge Plan - Discharge Medications Prescriptions: Lactobacillus Acidophilus [Bacid Acidophilus] 1 cap PO BID #14 cap Sulfamethoxazole/Trimethoprim [Bactrim DS 800 mg-160 mg] 1 tab PO DAILY #10 tab Folic Acid 1 mg PO DAILY #30 tab predniSONE [predniSONE Tab] 5 mg PO DAILY #21 tab Multimineral/Multivitamin [Therapeutic-M Tab] 1 tab PO DAILY #30 tab Thiamine [Vitamin B1 Tab] 100 mg PO DAILY #30 tab - Follow Up Plan Condition: FAIR Disposition: HOME/ ROUTINE Instructions: Cellulitis (DC), Cellulitis (GEN) Referrals: Isabella Barry MD [Staff Provider] -
== END 2019-01-22 18:43 | disposition home or self-care (01) | DRG 607 ==
LOC: H.ER 18:26 → H.ERHOLD 21:07 → H.MEDSURG1 01-19 01:24 → OBSVTOIN 01-19 12:14
PROVIDERS: ADMIT Internal Medicine; ATTEND Internal Medicine
DX: L56.8 Other specified acute skin changes due to ultraviolet radiation (principal); T78.40XA Allergy, unspecified, initial encounter; E87.6 Hypokalemia; G40.909 Epilepsy, unspecified, not intractable, without status epilepticus; I10 Essential (primary) hypertension; Z87.891 Personal history of nicotine dependence; X58.XXXA Exposure to other specified factors, initial encounter; R23.4 Changes in skin texture